=== PATIENT | male | born 2000 | race Caucasian/White ===

== ENCOUNTER 2018-05-13 06:11 | Day surgery (SDC) | payer BC ==
[2018-05-07 15:19] VITALS: BMI 19.0
[~2018-05-13 06:11] MED LIST: DEXAMETHASONE SOD PHOSPHATE 10 MG/ML 1 ML VIAL IV ONE; HEPARIN SODIUM,PORCINE 5,000 UNIT/ML 1 ML VIAL SQ ONE; HYDROmorphone 0.5 MG/0.5 ML SYRINGE IVP PRN; LACTATED RINGERS 1,000 ML IV SCH; ONDANSETRON 4 MG/2 ML VIAL IVP ONE; SCOPOLAMINE 1.5MG/72HR PATCH TRANSDERM ONE; fentaNYL (PF) 50 MCG/ML 2 ML AMP IV PRN
[2018-05-13] MEDS ORDERED: LIDOCAINE 1% 20 ML VIAL (10MG/ML) FOR IV START INTRADERMA ONE (07:12)
--- NOTE | 2018-05-13 07:42 | P.GSHP ---
History of Present Illness H&P Date: 05/13/18 Chief Complaint: Pilonidal cyst Patient is a 17-year-old male who has had complaints of pain in the region of the pilonidal region over the last several months. Denies fevers. States it is actually gotten somewhat smaller since his last evaluation. Patient has a sinus opening measuring about 3-4 mm with no erythema. No prior surgical intervention or drainage. 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 PILONIDAL CYST History of Any Multi-Drug Resistant Organisms: None Reported Past Surgical History: No Surgical Hx Reported Past Anesthesia/Blood Transfusion Reactions: No Reported Reaction Additional Past Anesthesia/Blood Transfusion Reaction / Comment(s): NO PRIOR SX HX Smoking Status: Never smoker - Past Family History Mother Family Medical History: No Reported History Medications and Allergies Home Medications Medication Instructions Recorded Confirmed Type No Known Home Medications 05/07/18 05/13/18 History Allergies Allergy/AdvReac Type Severity Reaction Status Date / Time No Known Allergies Allergy Verified 05/13/18 06:52 Surgical - Exam Vital Signs Temp Pulse Resp BP Pulse Ox 97.6 F 79 16 117/75 97 05/13/18 06:51 05/13/18 06:51 05/13/18 06:51 05/13/18 06:51 05/13/18 06:51 Physical exam: General: Well-developed, well-nourished HEENT: Normocephalic, sclerae nonicteric Abdomen: Nontender, nondistended Extremities: No edema, pilonidal region with 3-4 mm sinus Neuro: Alert and oriented Assessment and Plan (1) Pilonidal cyst Narrative/Plan: Will proceed with pilonidal cystectomy at this time. Risks were previously discussed with the patient. Current Visit: Yes Status: Acute Code(s): L05.91 - PILONIDAL CYST WITHOUT ABSCESS SNOMED Code(s): 74712833
[2018-05-13] MEDS ORDERED: PROPOFOL 10 MG/ML 20 ML VIAL IV ONE (07:56)
[2018-05-13] MEDS ORDERED: LIDOCAINE 1% INJ 10MG/ML (20 ML MDV) ONE (07:56)
[2018-05-13] MEDS ORDERED: fentaNYL (PF) 50 MCG/ML 2 ML AMP ONE (07:56)
[2018-05-13] MEDS ORDERED: SUCCINYLCHOLINE CHLORIDE 100 MG/5 ML SYR IV ONE (07:56)
[2018-05-13] MEDS ORDERED: MIDAZOLAM 2 MG/2 ML VIAL ONE (07:56)
[2018-05-13] MEDS: ceFAZolin IN SWFI 2 GM/20 ML SYRINGE IVP ONE ×2 (08:01→08:02)
[2018-05-13] MEDS: metroNIDAZOLE-NS PMX 500 MG in SALINE 1 100ML.BAG IVPB ONE ×2 (08:02→08:20)
[2018-05-13] MEDS ORDERED: BUPIVACAIN-EPI 0.5%-1:200,000 30 ML VIAL SQ ONE ×2 (08:26)
[2018-05-13] MEDS ORDERED: LACTATED RINGERS 1,000 ML IV ONE ×2 (08:41)
[2018-05-13] MEDS ORDERED: HYDROcodone/APAP 5-325MG 1 EACH TAB PO PRN (09:03)
[2018-05-13] MEDS ORDERED: NALOXONE 0.4 MG/ML 1 ML VIAL IV PRN (09:03)
--- NOTE | 2018-05-13 09:10 | P.OP ---
Date of Procedure: 05/13/18 Procedure(s) Performed: PREOPERATIVE DIAGNOSIS: Pilonidal cyst POSTOPERATIVE DIAGNOSIS: Same PROCEDURE: Pilonidal cystectomy SURGEON: Marquita ROGERL: Minimal ANESTHESIA: General COMPLICATIONS: None OPERATIVE PROCEDURE: Patient was placed prone on the operating table. The gluteal crease was prepped and draped in usual sterile fashion after the patient was placed in the prone jackknife position. The pilonidal cyst opening was instilled with methylene blue solution. An elliptical incision was made around the pilonidal cyst opening. Dissection took place down through the subcutaneous tissues using electrocautery. Care was taken to be sure that the entire cyst cavity was removed. Specimen was sent to pathology. The operative site was irrigated with saline. It was then infiltrated with local anesthesia. The subcutaneous tissues were then reapproximated using interrupted 3-0 Vicryl sutures. The skin was closed using a running 4-0 nylon sutures. Sterile dressings then applied. DISPOSITION: Stable to recovery room
[2018-05-13 09:19] VITALS: TEMP 97.3
[2018-05-13 09:29] VITALS: RESP 16
[2018-05-13] MEDS: HYDROmorphone 0.5 MG/0.5 ML SYRINGE IVP PRN ×2 (09:33→09:40)
[2018-05-13] MEDS ORDERED: HYDROcodone/APAP 5-325MG 1 EACH TAB PO ONE (10:11)
[2018-05-13 10:57] VITALS: BP 113/74; PULSE 71
== END 2018-05-13 11:27 | disposition home or self-care (01) ==
LOC: OR 06:11 → EDBD 07:30 → OR 11:27
PROVIDERS: ATTEND Surgery
DX: L05.91 Pilonidal cyst without abscess (principal); Q24.8 Other specified congenital malformations of heart
CPT/HCPCS: 11770; J2250; J1644; J1100; J2405; J2001; J3010; J0330; J2704; J1170; J0690; 88304

== ENCOUNTER 2018-07-31 13:26 | Observation (INO) | payer BC ==
[2018-07-31] MEDS ORDERED: PANTOPRAZOLE 40 MG/10 ML VIAL IVP STA (14:28)
[2018-07-31] MEDS ORDERED: ONDANSETRON 4 MG/2 ML VIAL IVP STA (14:28)
[2018-07-31] MEDS ORDERED: KETOROLAC 30 MG/ML 1 ML VIAL IVP STA (14:28)
[2018-07-31] MEDS ORDERED: SODIUM CHLORIDE 0.9% 1,000 ML IV STA ×2 (14:28)
--- NOTE | 2018-07-31 14:48 | ED ---
Abdominal Pain HPI - General Chief Complaint: Abdominal Pain Stated Complaint: abd pain Time Seen by Provider: 07/31/18 14:17 Source: patient, family, RN notes reviewed, old records reviewed Mode of arrival: wheelchair Limitations: no limitations - History of Present Illness Initial Comments: This patient's a 18-year-old male presents emergency department today with chief complaint of nausea, and lower abdominal pain. He reports it started this morning at 9 AM. He believes it was related to eating a pizza from a gas station. Patient states that he feels generally very ill and weak. Patient's had multiple episodes of near syncope due to weakness. Patient states that he has had no chest pain or shortness of breath. He reports he has chills. He denies any urinary symptoms he has had no diarrhea. Patient's past medical history includes pilonidal cyst surgery. No other previous abdominal surgeries or medical history - Related Data Home Medications Medication Instructions Recorded Confirmed Acetaminophen Tab [Tylenol Tab] 1,000 mg PO Q6H PRN 07/31/18 07/31/18 Allergies Allergy/AdvReac Type Severity Reaction Status Date / Time No Known Allergies Allergy Verified 07/31/18 14:27 Review of Systems ROS Statement: Those systems with pertinent positive or pertinent negative responses have been documented in the HPI. ROS Other: All systems not noted in ROS Statement are negative. 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 History of Any Multi-Drug Resistant Organisms: None Reported Past Surgical History: No Surgical Hx Reported Additional Past Surgical History / Comment(s): pilinodal cyst removed Past Anesthesia/Blood Transfusion Reactions: No Reported Reaction Additional Past Anesthesia/Blood Transfusion Reaction / Comment(s): NO PRIOR SX HX Past Psychological History: No Psychological Hx Reported Smoking Status: Never smoker Past Alcohol Use History: None Reported Past Drug Use History: None Reported - Past Family History Mother Family Medical History: No Reported History General Exam - General Exam Comments Initial Comments: This patient's a 18-year-old male. Patient appears weak and ill. Limitations: no limitations General appearance: alert Head exam: Present: atraumatic, normocephalic, normal inspection Eye exam: Present: normal appearance, PERRL, EOMI. Absent: scleral icterus, conjunctival injection, periorbital swelling ENT exam: Present: normal exam, mucous membranes moist Neck exam: Present: normal inspection. Absent: tenderness, meningismus, lymphadenopathy Respiratory exam: Present: normal lung sounds bilaterally. Absent: respiratory distress, wheezes, rales, rhonchi, stridor Cardiovascular Exam: Present: regular rate, normal rhythm, normal heart sounds. Absent: systolic murmur, diastolic murmur, rubs, gallop, clicks GI/Abdominal exam: Present: soft, tenderness (Lower abdominal tenderness noted, RLQ tenderness), normal bowel sounds. Absent: distended, guarding, rebound, rigid Extremities exam: Present: normal inspection, full ROM, normal capillary refill. Absent: tenderness, pedal edema, joint swelling, calf tenderness Back exam: Present: normal inspection Neurological exam: Present: alert, oriented X3, CN II-XII intact Course Vital Signs 07/31/18 07/31/18 07/31/18 13:31 14:37 16:07 Temperature 97.8 F 99 F Pulse Rate 77 82 Respiratory 16 18 Rate Blood Pressure 92/54 104/68 124/73 O2 Sat by Pulse 98 98 Oximetry Medical Decision Making - Medical Decision Making Patient is a 18-year-old male presents for his murmurs any tingling of lower abdominal pain and nausea. Examiner episode of vomiting and emergency department. Patient appeared very ill and weak. Evidence of Tamara's. Patient had significant tenderness over the lower abdomen and right lower quadrant. Concern for appendicitis. Patient was started on IV fluids labwork obtained. Blood culture was obtained. Patient has elevated white blood cell count of 18.6 with left shift of 16,000. Lactic acid was noted to be elevated at 2.8. Patient was started on IV Zosyn and given a liter boluses. Computed tomography scan was suboptimal study due to lack of intra-abdominal fat. Patient also seemed to have a reaction due to the contrast and after receiving the contrast he had a coughing and sneezing episode. Patient was given IV Benadryl and Solu-Medrol. No evidence of significant appendicitis at this time. Appendix was slightly enlarged at 8 mm. Patient will be admitted at this time to Dr. Chapman. Continue Zosyn. - Lab Data Result diagrams: 07/31/18 14:55 07/31/18 14:55 Lab Results 07/31/18 07/31/18 07/31/18 Range/Units 14:55 14:55 14:55 WBC 18.9 H (4.0-11.0) k/uL RBC 5.01 (4.30-5.90) m/uL Hgb 16.1 (13.0-17.5) gm/dL Hct 45.5 (39.0-53.0) % MCV 90.9 (80.0-100.0) fL MCH 32.2 (25.0-35.0) pg MCHC 35.5 (31.0-37.0) g/dL RDW 12.4 (11.5-15.5) % Plt Count 243 (150-450) k/uL Neutrophils % 89 % Lymphocytes % 7 % Monocytes % 3 % Eosinophils % 0 % Basophils % 0 % Neutrophils # 16.8 H (1.3-7.7) k/uL Lymphocytes # 1.4 (1.0-4.8) k/uL Monocytes # 0.6 (0-1.0) k/uL Eosinophils # 0.1 (0-0.7) k/uL Basophils # 0.0 (0-0.2) k/uL PT (9.0-12.0) sec INR (<1.2) APTT (22.0-30.0) sec Sodium 142 (137-145) mmol/L Potassium 3.3 L (3.5-5.1) mmol/L Chloride 103 (98-107) mmol/L Carbon Dioxide 26 (22-30) mmol/L Anion Gap 13 mmol/L BUN 13 (9-20) mg/dL Creatinine 0.77 (0.66-1.25) mg/dL Est GFR (CKD-EPI)AfAm >90 (>60 ml/min/1.73 sqM) Est GFR (CKD-EPI)NonAf >90 (>60 ml/min/1.73 sqM) Glucose 133 H (74-99) mg/dL Plasma Lactic Acid Clif 2.8 H* (0.7-2.0) mmol/L Calcium 9.9 (8.4-10.2) mg/dL Total Bilirubin 0.7 (0.2-1.3) mg/dL AST 24 (17-59) U/L ALT 33 (21-72) U/L Alkaline Phosphatase 66 (38-126) U/L Total Protein 8.2 (6.3-8.2) g/dL Albumin 4.8 (3.5-5.0) g/dL Amylase 61 (30-110) U/L Lipase 59 (23-300) U/L Urine Color Urine Appearance (Clear) Urine pH (5.0-8.0) Ur Specific [place] (1.001-1.035) Urine Protein (Negative) Urine Glucose (UA) (Negative) Urine Ketones (Negative) Urine Blood (Negative) Urine Nitrite (Negative) Urine Bilirubin (Negative) Urine Urobilinogen (<2.0) mg/dL Ur Leukocyte Esterase (Negative) Urine Opiates Screen (NotDetected) Ur Oxycodone Screen (NotDetected) Urine Methadone Screen (NotDetected) Ur Propoxyphene Screen (NotDetected) Ur Barbiturates Screen (NotDetected) U Tricyclic Antidepress (NotDetected) Ur Phencyclidine Scrn (NotDetected) Ur Amphetamines Screen (NotDetected) U Methamphetamines Scrn (NotDetected) U Benzodiazepines Scrn (NotDetected) Urine Cocaine Screen (NotDetected) U Marijuana (THC) Screen (NotDetected) 07/31/18 07/31/18 Range/Units 14:55 14:55 WBC (4.0-11.0) k/uL RBC (4.30-5.90) m/uL Hgb (13.0-17.5) gm/dL Hct (39.0-53.0) % MCV (80.0-100.0) fL MCH (25.0-35.0) pg MCHC (31.0-37.0) g/dL RDW (11.5-15.5) % Plt Count (150-450) k/uL Neutrophils % % Lymphocytes % % Monocytes % % Eosinophils % % Basophils % % Neutrophils # (1.3-7.7) k/uL Lymphocytes # (1.0-4.8) k/uL Monocytes # (0-1.0) k/uL Eosinophils # (0-0.7) k/uL Basophils # (0-0.2) k/uL PT 11.5 (9.0-12.0) sec INR 1.2 H (<1.2) APTT 22.2 (22.0-30.0) sec Sodium (137-145) mmol/L Potassium (3.5-5.1) mmol/L Chloride (98-107) mmol/L Carbon Dioxide (22-30) mmol/L Anion Gap mmol/L BUN (9-20) mg/dL Creatinine (0.66-1.25) mg/dL Est GFR (CKD-EPI)AfAm (>60 ml/min/1.73 sqM) Est GFR (CKD-EPI)NonAf (>60 ml/min/1.73 sqM) Glucose (74-99) mg/dL Plasma Lactic Acid Clif (0.7-2.0) mmol/L Calcium (8.4-10.2) mg/dL Total Bilirubin (0.2-1.3) mg/dL AST (17-59) U/L ALT (21-72) U/L Alkaline Phosphatase (38-126) U/L Total Protein (6.3-8.2) g/dL Albumin (3.5-5.0) g/dL Amylase (30-110) U/L Lipase (23-300) U/L Urine Color Yellow Urine Appearance Clear (Clear) Urine pH 6.0 (5.0-8.0) Ur Specific [place] 1.018 (1.001-1.035) Urine Protein Negative (Negative) Urine Glucose (UA) Negative (Negative) Urine Ketones Negative (Negative) Urine Blood Negative (Negative) Urine Nitrite Negative (Negative) Urine Bilirubin Negative (Negative) Urine Urobilinogen <2.0 (<2.0) mg/dL Ur Leukocyte Esterase Negative (Negative) Urine Opiates Screen Not Detected (NotDetected) Ur Oxycodone Screen Not Detected (NotDetected) Urine Methadone Screen Not Detected (NotDetected) Ur Propoxyphene Screen Not Detected (NotDetected) Ur Barbiturates Screen Not Detected (NotDetected) U Tricyclic Antidepress Not Detected (NotDetected) Ur Phencyclidine Scrn Not Detected (NotDetected) Ur Amphetamines Screen Not Detected (NotDetected) U Methamphetamines Scrn Not Detected (NotDetected) U Benzodiazepines Scrn Not Detected (NotDetected) Urine Cocaine Screen Not Detected (NotDetected) U Marijuana (THC) Screen Not Detected (NotDetected) - Radiology Data Radiology results: report reviewed Disposition Clinical Impression: Abdominal pain, Leukocytosis, Lactic acidosis Disposition: ADMITTED IP TO THIS [facility] Condition: Stable Is patient prescribed a controlled substance at d/c from ED?: No Referrals: None,Stated [Primary Care Provider] - 1-2 days Time of Disposition: 16:31
[2018-07-31 15:10] LABS: Basophils % (A) 0 %; Eosinophils # (A) 0.1 k/uL (0-0.7); Eosinophils % (A) 0 %; HCT 45.5 % (39.0-53.0); HGB 16.1 gm/dL (13.0-17.5); Lymphocytes # (A) 1.4 k/uL (1.0-4.8); Lymphocytes % (A) 7 %; MCH 32.2 pg (25.0-35.0); MCHC 35.5 g/dL (31.0-37.0); MCV 90.9 fL (80.0-100.0); Mean Platelet Volume 7.4; Monocytes # (A) 0.6 k/uL (0-1.0); Monocytes % (A) 3 %; Neutrophils # (A) 16.8 k/uL (1.3-7.7); Neutrophils % (A) 89 %; Platelet Count 243 k/uL (150-450); RBC 5.01 m/uL (4.30-5.90); RDW 12.4 % (11.5-15.5); WBC 18.9 k/uL (4.0-11.0)
[2018-07-31 15:11] LABS: Appearance,Urine Clear (Clear); Bilirubin,Urine Negative (Negative); Blood,Urine Negative (Negative); Color,Urine Yellow; Glucose,Urine (UA) Negative (Negative); Ketones,Urine Negative (Negative); Leukocyte Esterase,Urine Negative (Negative); Nitrite,Urine Negative (Negative); Protein,Urine Negative (Negative); Specific Gravity,Urine 1.018 (1.001-1.035); Urobilinogen,Urine <2.0 mg/dL (<2.0)
[2018-07-31 15:20] LABS: ALT 33 U/L (21-72); AST 24 U/L (17-59); Albumin 4.8 g/dL (3.5-5.0); Alkaline Phosphatase 66 U/L (38-126); Amylase 61 U/L (30-110); Anion Gap 13 mmol/L; Blood Urea Nitrogen 13 mg/dL (9-20); Calcium 9.9 mg/dL (8.4-10.2); Carbon Dioxide 26 mmol/L (22-30); Chloride 103 mmol/L (98-107); Glucose 133 mg/dL (74-99); Lipase 59 U/L (23-300); Potassium 3.3 mmol/L (3.5-5.1); Sodium 142 mmol/L (137-145); Total Bilirubin 0.7 mg/dL (0.2-1.3); Total Protein 8.2 g/dL (6.3-8.2)
[2018-07-31 15:21] LABS: Amphetamine Screen,Urine Not Detected (NotDetected); Barbiturate Screen,Urine Not Detected (NotDetected); Benzodiazepines Screen,Urine Not Detected (NotDetected); Cocaine Screen,Urine Not Detected (NotDetected); INR 1.2 (<1.2); Methadone Screen, Urine Not Detected (NotDetected); Opiate Screen,Urine Not Detected (NotDetected); Oxycodone Screen, Urine Not Detected (NotDetected); Partial Thromboplastin Time 22.2 sec (22.0-30.0); Phencyclidine Screen,Urine Not Detected (NotDetected); Prothrombin Time 11.5 sec (9.0-12.0); Tricyclic Antidepressant,Urine Not Detected (NotDetected); Urn Cannabinoid Scrn Not Detected (NotDetected)
[2018-07-31] MEDS ORDERED: methylPREDNISolone SOD SUCCI 125 MG/2 ML VIAL IV STA (15:26)
[2018-07-31] MEDS ORDERED: diphenhydrAMINE 50 MG/ML 1 ML VIAL IVP STA (15:26)
[2018-07-31] MEDS ORDERED: PIPERACILLIN-TAZOBACTAM 3.375 GM in DEXTROSE/WATER 1 50ML.BAG IVPB STA (15:30)
--- NOTE | 2018-07-31 15:39 | CT ---
EXAMINATION TYPE: CT abdomen pelvis w con DATE OF EXAM: 07/31/2018 COMPARISON: None HISTORY: Right lower quadrant abdominal pain, nausea and vomiting after eating. CT DLP: 241.7 mGycm, Automated Exposure Control for Dose Reduction was Utilized. CONTRAST: CT scan of the abdomen and pelvis is performed without oral but with IV Contrast, patient injected wi th 100ml mL of Isovue M300. FINDINGS: LUNG BASES: No significant abnormality is appreciated. LIVER/GB: No significant abnormality is appreciated. PANCREAS: No significant abnormality is seen. SPLEEN: No significant abnormality is seen. ADRENALS: No significant abnormality is seen. KIDNEYS: No significant abnormality is seen. BOWEL: Evaluation bowel is suboptimal secondary to lack of enteric contrast and patient having very l ittle intra-abdominal fat. There is no suspicious small or large bowel dilatation identified. Appendi x difficult to visualize with certainty. No significant inflammatory change at base of cecum is prese nt. There is tube shaped structure right lower quadrant posterior to the cecum axial image 52 could r eflect mildly dilated appendix versus fluid-filled nondilated small bowel. No surrounding inflammator y changes present. It measures roughly up to 8 mm in size coronal image 31. PROSTATE/SEMINAL VESICLES: Single left-sided pelvic phlebolith is present. LYMPH NODES: No greater than 1cm abdominal or pelvic lymph nodes are appreciated. OSSEOUS STRUCTURES: Bilateral pars defects L5 level. Slight or minimal grade 1 anterolisthesis L5 on S1. OTHER: No significant additional abnormality is seen. IMPRESSION: No significant acute finding is clearly seen to account for patient's clinical symptoms. Suboptimal study to evaluate for acute appendicitis noted. I cannot be entirely excluded on this leonora dy. No bowel obstruction is present.
[2018-07-31] MEDS ORDERED: ONDANSETRON 4 MG/2 ML VIAL IVP PRN (16:32)
[2018-07-31] MEDS ORDERED: NALOXONE 0.4 MG/ML 1 ML VIAL IV PRN (16:32)
[2018-07-31] MEDS: SODIUM CHLORIDE 0.9% 1,000 ML IV SCH (17:40)
[2018-07-31] MEDS: MORPHINE SULFATE 4 MG/ML SYRINGE IV PRN (18:25)
--- NOTE | 2018-07-31 19:28 | P.GSHP ---
History of Present Illness H&P Date: 07/31/18 Chief Complaint: Abdominal pain The patient's a 18-year-old young man that presented to the emergency department with abdominal pain. Healing normally yesterday. [place] 9 this morning he noticed some discomfort in the abdomen. It got progressively worse. Severe cramping and pain. He had some chills. Developed nausea and vomiting so he came into the emergency department. He has not been ill in the weeks proceeding this. He did have a similar admission about 2 years ago when he was admitted to rule out appendicitis. That resolved without any surgical treatment. Denies fevers today. He had some constipation today. He has had episodes of diarrhea recently. On a bad day he is on 3-5 times. There is been no blood in the stool or dark tarry stool. No weight loss. No family history of GI malignancy or inflammatory bowel disease. 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 hx of pilonidal cyst History of Any Multi-Drug Resistant Organisms: None Reported Past Surgical History: No Surgical Hx Reported Additional Past Surgical History / Comment(s): pilinodal cyst removed Past Anesthesia/Blood Transfusion Reactions: No Reported Reaction Additional Past Anesthesia/Blood Transfusion Reaction / Comment(s): NO PRIOR SX HX Smoking Status: Never smoker - Past Family History Mother Family Medical History: No Reported History Father Additional Family Medical History / Comment(s): hernia Medications and Allergies Home Medications Medication Instructions Recorded Confirmed Type Acetaminophen Tab [Tylenol Tab] 1,000 mg PO Q6H PRN 07/31/18 07/31/18 History Allergies Allergy/AdvReac Type Severity Reaction Status Date / Time No Known Allergies Allergy Verified 07/31/18 14:27 Surgical - Exam Osteopathic Statement: *. No significant issues noted on an osteopathic structural exam other than those noted in the History and Physical/Consult. Vital Signs Temp Pulse Resp BP Pulse Ox 97.8 F 77 16 92/54 98 07/31/18 13:31 07/31/18 13:31 07/31/18 13:31 07/31/18 13:31 07/31/18 13:31 - General well developed, well nourished, no distress - Eyes normal ocular movement - ENT normal mucosa, no congestion - Neck no no masses, trachea midline, no lymphadectomy (Several subcentimeter lymph nodes are noted in the neck. A subcentimeter cyst is noted in the left posterior neck.) - Respiratory normal expansion, normal respiratory effort, clear to auscultation absent: wheezing - Cardiovascular Rhythm: regular - Abdomen No significant tenderness to deep palpation in the right lower quadrant. He states it feels better than when he presented to the emergency department Abdomen: soft, tender (Mild epigastric tenderness. ), bowel sounds, no guarding , no rigid, no rebound - Integumentary no rash - Neurologic no disoriented, no combative - Psychiatric oriented to time, oriented to person, oriented to place, speech is normal, memory intact Results - Labs 07/31/18 14:55 07/31/18 14:55 Abnormal Lab Results - Last 24 Hours (Table) 07/31/18 07/31/18 07/31/18 Range/Units 14:55 14:55 14:55 WBC 18.9 H (4.0-11.0) k/uL Neutrophils # 16.8 H (1.3-7.7) k/uL INR (<1.2) Potassium 3.3 L (3.5-5.1) mmol/L Glucose 133 H (74-99) mg/dL Plasma Lactic Acid Clif 2.8 H* (0.7-2.0) mmol/L 07/31/18 Range/Units 14:55 WBC (4.0-11.0) k/uL Neutrophils # (1.3-7.7) k/uL INR 1.2 H (<1.2) Potassium (3.5-5.1) mmol/L Glucose (74-99) mg/dL Plasma Lactic Acid Clif (0.7-2.0) mmol/L Diabetes panel 07/31/18 Range/Units 14:55 Sodium 142 (137-145) mmol/L Potassium 3.3 L (3.5-5.1) mmol/L Chloride 103 (98-107) mmol/L Carbon Dioxide 26 (22-30) mmol/L BUN 13 (9-20) mg/dL Creatinine 0.77 (0.66-1.25) mg/dL Glucose 133 H (74-99) mg/dL Calcium 9.9 (8.4-10.2) mg/dL AST 24 (17-59) U/L ALT 33 (21-72) U/L Alkaline Phosphatase 66 (38-126) U/L Total Protein 8.2 (6.3-8.2) g/dL Albumin 4.8 (3.5-5.0) g/dL Calcium panel 07/31/18 Range/Units 14:55 Calcium 9.9 (8.4-10.2) mg/dL Albumin 4.8 (3.5-5.0) g/dL Pituitary panel 07/31/18 Range/Units 14:55 Sodium 142 (137-145) mmol/L Potassium 3.3 L (3.5-5.1) mmol/L Chloride 103 (98-107) mmol/L Carbon Dioxide 26 (22-30) mmol/L BUN 13 (9-20) mg/dL Creatinine 0.77 (0.66-1.25) mg/dL Glucose 133 H (74-99) mg/dL Calcium 9.9 (8.4-10.2) mg/dL Adrenal panel 07/31/18 Range/Units 14:55 Sodium 142 (137-145) mmol/L Potassium 3.3 L (3.5-5.1) mmol/L Chloride 103 (98-107) mmol/L Carbon Dioxide 26 (22-30) mmol/L BUN 13 (9-20) mg/dL Creatinine 0.77 (0.66-1.25) mg/dL Glucose 133 H (74-99) mg/dL Calcium 9.9 (8.4-10.2) mg/dL Total Bilirubin 0.7 (0.2-1.3) mg/dL AST 24 (17-59) U/L ALT 33 (21-72) U/L Alkaline Phosphatase 66 (38-126) U/L Total Protein 8.2 (6.3-8.2) g/dL Albumin 4.8 (3.5-5.0) g/dL - Imaging CT scan - abdomen: report reviewed, image reviewed Assessment and Plan (1) Abdominal pain Current Visit: Yes Status: Acute Code(s): R10.9 - UNSPECIFIED ABDOMINAL PAIN SNOMED Code(s): 29000804 (2) Lactic acidosis Current Visit: Yes Status: Acute Code(s): E87.2 - ACIDOSIS SNOMED Code(s) : 63129467 (3) Leukocytosis Current Visit: Yes Status: Acute Code(s): D72.829 - ELEVATED WHITE BLOOD CELL COUNT, UNSPECIFIED SNOMED Code(s): 711905496 Plan: The patient is currently feeling better with hydration and some pain medication. He'll be watched overnight hydrated. Serial exams. If he continues to have right lower quadrant pain in the leukocytosis doesn't resolve then keep a candidate for laparoscopic appendectomy. Especially since he's had a previous episode of this. Further recommendations to follow. May possibly need outpatient workup for the diarrhea.
[2018-07-31] MEDS: KETOROLAC 30 MG/ML 1 ML VIAL IVP PRN (22:39)
[2018-07-31 22:50] VITALS: RESP 16
[2018-08-01] MEDS: PIPERACILLIN-TAZOBACTAM 3.375 GM in DEXTROSE/WATER 1 50ML.BAG IVPB SCH ×2 (00:11→08:13)
[2018-08-01] MEDS: MORPHINE SULFATE 4 MG/ML SYRINGE IV PRN (00:17)
[2018-08-01] MEDS: SODIUM CHLORIDE 0.9% 1,000 ML IV SCH ×2 (05:03→14:00)
[2018-08-01 07:34] VITALS: BP 90/57; PULSE 81; TEMP 98.1
[2018-08-01 08:26] LABS: HCT 41.1 % (39.0-53.0); MCHC 34.1 g/dL (31.0-37.0); MCV 90.8 fL (80.0-100.0); Mean Platelet Volume 7.7; Platelet Count 211 k/uL (150-450); RBC 4.52 m/uL (4.30-5.90); RDW 12.4 % (11.5-15.5); WBC 12.8 k/uL (4.0-11.0)
[2018-08-01 08:49] LABS: Anion Gap 7 mmol/L; Blood Urea Nitrogen 12 mg/dL (9-20); Calcium 8.9 mg/dL (8.4-10.2); Carbon Dioxide 24 mmol/L (22-30); Chloride 109 mmol/L (98-107); Glucose 95 mg/dL (74-99); Sodium 140 mmol/L (137-145)
[2018-08-01] MEDS ORDERED: PANTOPRAZOLE 40 MG/10 ML VIAL IV SCH (09:00)
--- NOTE | 2018-08-01 09:55 | P.PN ---
Subjective Progress Note Date: 08/01/18 Principal diagnosis: Abdominal pain, nausea, vomiting The patient was admitted through ER yesterday with abdominal pain, nausea and vomiting. He had a 18,900 white count. He was hydrated, bowel rest and given pain control. He's feeling better today. No nausea. He is hungry. He has some mild tenderness in his abdomen. Objective - Vital Signs Vital signs: Vital Signs Temp 98.1 F 08/01/18 07:13 Pulse 81 08/01/18 07:13 Resp 16 08/01/18 08:00 BP 90/57 08/01/18 07:13 Pulse Ox 99 08/01/18 07:13 Intake & Output 07/31/18 08/01/18 08/01/18 18:59 06:59 18:59 Weight 56.699 kg Other: # Voids 2 - Constitutional General appearance: Present: cooperative, no acute distress - Respiratory Respiratory: bilateral: CTA - Cardiovascular Rhythm: regular - Gastrointestinal General gastrointestinal: Present: normal bowel sounds, soft, tenderness (There is some very mild tenderness to deep palpation in the right lower quadrant without guarding or rebound) - Labs CBC & Chem 7: 08/01/18 08:06 08/01/18 08:06 Labs: Abnormal Lab Results - Last 24 Hours (Table) 07/31/18 07/31/18 07/31/18 Range/Units 14:55 14:55 14:55 WBC 18.9 H (4.0-11.0) k/uL Neutrophils # 16.8 H (1.3-7.7) k/uL INR (<1.2) Potassium 3.3 L (3.5-5.1) mmol/L Chloride (98-107) mmol/L Glucose 133 H (74-99) mg/dL Plasma Lactic Acid Clif 2.8 H* (0.7-2.0) mmol/L 07/31/18 08/01/18 08/01/18 Range/Units 14:55 08:06 08:06 WBC 12.8 H (4.0-11.0) k/uL Neutrophils # (1.3-7.7) k/uL INR 1.2 H (<1.2) Potassium (3.5-5.1) mmol/L Chloride 109 H (98-107) mmol/L Glucose (74-99) mg/dL Plasma Lactic Acid Clif (0.7-2.0) mmol/L Assessment and Plan (1) Abdominal pain Current Visit: Yes Status: Acute Code(s): R10.9 - UNSPECIFIED ABDOMINAL PAIN SNOMED Code(s): 98567926 (2) Lactic acidosis Current Visit: Yes Status: Acute Code(s): E87.2 - ACIDOSIS SNOMED Code(s) : 42294410 (3) Leukocytosis Current Visit: Yes Status: Acute Code(s): D72.829 - ELEVATED WHITE BLOOD CELL COUNT, UNSPECIFIED SNOMED Code(s): 509679290 Plan: Patient's clinically improved. This is likely a viral syndrome. We'll start him on a diet. If he is able to tolerate food without increasing pain, nausea, vomiting, then we'll discharge him later today. If he develops recurrence of symptoms and I would recommend a laparoscopy with appendectomy.
[2018-08-01 11:32] VITALS: BMI 19.0
[2018-08-01] MEDS: KETOROLAC 30 MG/ML 1 ML VIAL IVP PRN (13:52)
== END 2018-08-01 14:07 | disposition home or self-care (01) ==
LOC: EC 13:26 → 4MS4W 16:20
PROVIDERS: ADMIT Surgery; ATTEND Surgery
DX: E87.2 Acidosis (principal); D72.829 Elevated white blood cell count, unspecified; R10.31 Right lower quadrant pain; R68.83 Chills (without fever); R05 Cough; R06.7 Sneezing; K59.00 Constipation, unspecified; R19.7 Diarrhea, unspecified
CPT/HCPCS: 99285 ×2; 96365 ×2; 96361 ×4; 96375 ×3; 96376 ×2; 36415; 80053; 80048; 82150; 83605; 83690; 85025; 85027; 85610; 85730; 81003; 87040; 80306; 74177; G0378 ×2; J2270 ×2; J1200; J2930; J2405; J1885 ×2; J2543 ×2; C9113 ×2; Q9967

== ENCOUNTER 2018-08-03 12:38 | Observation (INO) | payer BC ==
[2018-08-03] MEDS ORDERED: SODIUM CHLORIDE 0.9% 1,000 ML IV STA (13:15)
[2018-08-03] MEDS ORDERED: methylPREDNISolone SOD SUCCI 125 MG/2 ML VIAL IV STA (13:16)
[2018-08-03] MEDS ORDERED: diphenhydrAMINE 50 MG/ML 1 ML VIAL IVP STA (13:16)
[2018-08-03] MEDS ORDERED: FAMOTIDINE 20 MG/2 ML VIAL IV STA (13:16)
--- NOTE | 2018-08-03 13:50 | ED ---
General Adult HPI - General Chief complaint: Abdominal Pain Stated complaint: Abd Pain Time Seen by Provider: 08/03/18 13:08 Source: patient, RN notes reviewed, old records reviewed Mode of arrival: ambulatory Limitations: no limitations - History of Present Illness Initial comments: Patient's a 18-year-old male presented to the emergency room today with a chief complaint of right lower quadrant pain. Patient does admit that he was seen here recently for possible appendicitis. He states that he was discharged home stools been experiencing pain to the right lower quadrant. Patient does admit that he did talk to Dr. Juárez's office today was advised coming here to the emergency room for repeat CAT scan. Patient mitts to pain to the right lower quadrant. Denies any other complaints currently. Patient denies any recent fever, chills, shortness of breath, chest pain, numbness or tingling, headaches or visual changes, or any other complaints. - Related Data Home Medications Medication Instructions Recorded Confirmed No Known Home Medications 08/03/18 08/03/18 Allergies Allergy/AdvReac Type Severity Reaction Status Date / Time Iodinated Contrast- Oral and AdvReac Cough/sneez Verified 08/03/18 14:22 IV Dye e Review of Systems ROS Statement: Those systems with pertinent positive or pertinent negative responses have been documented in the HPI. ROS Other: All systems not noted in ROS Statement are negative. 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 hx of pilonidal cyst History of Any Multi-Drug Resistant Organisms: None Reported Past Surgical History: No Surgical Hx Reported Additional Past Surgical History / Comment(s): pilinodal cyst removed Past Anesthesia/Blood Transfusion Reactions: No Reported Reaction Additional Past Anesthesia/Blood Transfusion Reaction / Comment(s): NO PRIOR SX HX Past Psychological History: No Psychological Hx Reported Smoking Status: Never smoker Past Alcohol Use History: None Reported Past Drug Use History: None Reported - Past Family History Mother Family Medical History: No Reported History Father Additional Family Medical History / Comment(s): hernia General Exam - General Exam Comments Initial Comments: General: The patient is awake and alert, in no distress, and does not appear acutely ill. Eye: Pupils are equal, round and reactive to light. Extra-ocular movements are intact. No nystagmus. There is normal conjunctiva bilaterally. No signs of icterus. Ears, nose, mouth and throat: There are moist mucous membranes and no oral lesions. Neck: The neck is supple, there is no tenderness or JVD. Cardiovascular: There is a regular rate and rhythm. No murmur, rub or gallop is appreciated. Respiratory: Lungs are clear to auscultation, respirations are non-labored, breath sounds are equal. No wheezes, stridor, rales, or rhonchi. Gastrointestinal: Soft on palpation. Patient does have tenderness over the arch. No rebound, guarding or CVA tenderness. Musculoskeletal: Normal ROM, no tenderness. Sensation intact. Strength 5/5. Pulses equal bilaterally 2+. Neurological: A&O x 3. CN II-XII intact, There are no obvious motor or sensory deficits. Coordination appears grossly intact. Speech is normal. Skin: Skin is warm and dry and no rashes or lesions are noted. Psychiatric: Cooperative, appropriate mood & affect, normal judgment. Limitations: no limitations Course Vital Signs 08/03/18 12:53 Temperature 98.3 F Pulse Rate 74 Respiratory 20 Rate Blood Pressure 109/78 O2 Sat by Pulse 99 Oximetry Medical Decision Making - Medical Decision Making Patient reexamined at this time shows no signs of distress. He is resting comfortably. Patient did have some throat scratchiness after CT. Patient did have some sneezing of previous CAT scan a few days ago. He was premedicated. At this time is symptom free with any throat irritation difficulty breathing, or swollen. Patient's labs been reviewed no white count. Patient's vitals are stable. Patient has mild tenderness right lower quadrant. CT of the abdomen and pelvis was performed and shows better visualization of the appendix which is mildly elevated and suggestion of the mucosal hyperemia. No significant surrounding fat stranding noted. Acute appendicitis is not excluded as read by radiology. Case discussed with attending physician who did discuss the case with patient's surgeon Dr. Juárez : With the patient and recommend starting antibiotics. Patient will be made nothing by mouth as there is a chance of going to the OR today. - Lab Data Result diagrams: 08/03/18 13:45 08/03/18 13:45 Lab Results 08/03/18 08/03/18 08/03/18 Range/Units 13:45 13:45 13:45 WBC 7.4 (4.0-11.0) k/uL RBC 5.07 (4.30-5.90) m/uL Hgb 16.2 (13.0-17.5) gm/dL Hct 46.0 (39.0-53.0) % MCV 90.6 (80.0-100.0) fL MCH 31.8 (25.0-35.0) pg MCHC 35.2 (31.0-37.0) g/dL RDW 12.4 (11.5-15.5) % Plt Count 229 (150-450) k/uL Neutrophils % 65 % Lymphocytes % 26 % Monocytes % 5 % Eosinophils % 3 % Basophils % 1 % Neutrophils # 4.8 (1.3-7.7) k/uL Lymphocytes # 1.9 (1.0-4.8) k/uL Monocytes # 0.4 (0-1.0) k/uL Eosinophils # 0.2 (0-0.7) k/uL Basophils # 0.0 (0-0.2) k/uL Sodium 142 (137-145) mmol/L Potassium 4.0 (3.5-5.1) mmol/L Chloride 102 (98-107) mmol/L Carbon Dioxide 30 (22-30) mmol/L Anion Gap 10 mmol/L BUN 15 (9-20) mg/dL Creatinine 0.83 (0.66-1.25) mg/dL Est GFR (CKD-EPI)AfAm >90 (>60 ml/min/1.73 sqM) Est GFR (CKD-EPI)NonAf >90 (>60 ml/min/1.73 sqM) Glucose 77 (74-99) mg/dL Calcium 9.6 (8.4-10.2) mg/dL Total Bilirubin 0.7 (0.2-1.3) mg/dL AST 33 (17-59) U/L ALT 37 (21-72) U/L Alkaline Phosphatase 49 (38-126) U/L Total Protein 8.3 H (6.3-8.2) g/dL Albumin 4.7 (3.5-5.0) g/dL Urine Color Light Yellow Urine Appearance Clear (Clear) Urine pH 6.5 (5.0-8.0) Ur Specific [place] 1.013 (1.001-1.035) Urine Protein Negative (Negative) Urine Glucose (UA) Negative (Negative) Urine Ketones Negative (Negative) Urine Blood Negative (Negative) Urine Nitrite Negative (Negative) Urine Bilirubin Negative (Negative) Urine Urobilinogen <2.0 (<2.0) mg/dL Ur Leukocyte Esterase Negative (Negative) Disposition Clinical Impression: Abdominal pain Disposition: ADMITTED IP TO THIS HOSP Condition: Stable Is patient prescribed a controlled substance at d/c from ED?: No Referrals: None,Stated [Primary Care Provider] - 1-2 days Time of Disposition: 15:29
[2018-08-03 14:44] LABS: Appearance,Urine Clear (Clear); Bilirubin,Urine Negative (Negative); Blood,Urine Negative (Negative); Color,Urine Light Yellow; Glucose,Urine (UA) Negative (Negative); Ketones,Urine Negative (Negative); Leukocyte Esterase,Urine Negative (Negative); Nitrite,Urine Negative (Negative); PH, Urine 6.5 (5.0-8.0); Protein,Urine Negative (Negative); Specific Gravity,Urine 1.013 (1.001-1.035); Urobilinogen,Urine <2.0 mg/dL (<2.0)
--- NOTE | 2018-08-03 14:45 | CT ---
EXAMINATION TYPE: CT abdomen pelvis w con DATE OF EXAM: 08/03/2018 COMPARISON: CT abdomen pelvis from 3 days ago HISTORY: RLQ pain x3 days CT DLP: 518.4 mGycm, Automated Exposure Control for Dose Reduction was Utilized. CONTRAST: CT scan of the abdomen and pelvis is performed without oral but with IV Contrast, patient injected wi th 100 mL of Isovue 300. FINDINGS: LUNG BASES: No significant abnormality is appreciated. LIVER/GB: No significant abnormality is appreciated. PANCREAS: No significant abnormality is seen. SPLEEN: No significant abnormality is seen. ADRENALS: No significant abnormality is seen. KIDNEYS: Symmetric cortical medullary uptake and excretion from both kidneys is seen without hydronep hrosis is identified bilaterally. BOWEL: Appendix is better seen on current study ascending from the posterior aspect of cecum. It is m ildly dilated up to 9 mm axial image 53 for reference. It is thicker in the tip in mid segments versu s base. No significant surrounding inflammatory change is identified. Some mucosal hyperemia is felt present as there is no central air within the appendix lumen identified. PROSTATE/SEMINAL VESICLES: No gross abnormality seen. LYMPH NODES: No greater than 1cm abdominal or pelvic lymph nodes are appreciated. OSSEOUS STRUCTURES: Bilateral pars defects L5 level redemonstrated without significant spondylolisthe sis. OTHER: Tiny amount of free fluid pelvis near axial image 72 slightly larger versus prior. IMPRESSION: Better visualization of appendix which is mildly dilated and has suggestion of mucosal hy peremia. No significant surrounding fat stranding is noted. Acute appendicitis cannot be excluded bas ed on these findings.
[2018-08-03 14:51] LABS: ALT 37 U/L (21-72); AST 33 U/L (17-59); Albumin 4.7 g/dL (3.5-5.0); Alkaline Phosphatase 49 U/L (38-126); Anion Gap 10 mmol/L; Blood Urea Nitrogen 15 mg/dL (9-20); Calcium 9.6 mg/dL (8.4-10.2); Carbon Dioxide 30 mmol/L (22-30); Chloride 102 mmol/L (98-107); Glucose 77 mg/dL (74-99); Sodium 142 mmol/L (137-145); Total Bilirubin 0.7 mg/dL (0.2-1.3); Total Protein 8.3 g/dL (6.3-8.2)
[2018-08-03 15:14] LABS: Basophils % (A) 1 %; Eosinophils # (A) 0.2 k/uL (0-0.7); Eosinophils % (A) 3 %; HGB 16.2 gm/dL (13.0-17.5); Lymphocytes # (A) 1.9 k/uL (1.0-4.8); Lymphocytes % (A) 26 %; MCH 31.8 pg (25.0-35.0); MCHC 35.2 g/dL (31.0-37.0); MCV 90.6 fL (80.0-100.0); Mean Platelet Volume 7.8; Monocytes # (A) 0.4 k/uL (0-1.0); Monocytes % (A) 5 %; Neutrophils # (A) 4.8 k/uL (1.3-7.7); Neutrophils % (A) 65 %; Platelet Count 229 k/uL (150-450); RBC 5.07 m/uL (4.30-5.90); RDW 12.4 % (11.5-15.5); WBC 7.4 k/uL (4.0-11.0)
[2018-08-03] MEDS ORDERED: NALOXONE 0.4 MG/ML 1 ML VIAL IV PRN ×2 (15:29→19:14)
[2018-08-03] MEDS ORDERED: MORPHINE SULFATE 4 MG/ML SYRINGE IV PRN (15:29)
[2018-08-03] MEDS ORDERED: ONDANSETRON 4 MG/2 ML VIAL IVP PRN (15:29)
[2018-08-03] MEDS ORDERED: PIPERACILLIN-TAZOBACTAM 3.375 GM in DEXTROSE/WATER 1 50ML.BAG IVPB STA (15:29)
[2018-08-03] MEDS: SODIUM CHLORIDE 0.9% 1,000 ML IV ONE ×2 (15:37→20:37)
--- NOTE | 2018-08-03 17:01 | P.GSHP ---
History of Present Illness H&P Date: 08/03/18 Chief Complaint: Right lower quadrant abdominal pain 18-year-old male came to the ER on Friday with complaints of severe right lower quadrant pain. Patient had a CAT scan showing some slight distention and possible mucosal thickening of the appendix. White blood cell count was elevated. Patient's pain did improve and he was thought to likely be suffering from a viral illness and he was discharged home. He was given IV antibiotics on at least 2 separate occasions over the weekend however. Today he was still having pain. His family contacted my office wondering what they should do. He came back to the ER today. CAT scan was repeated. CAT scan still shows some hyperemia of the appendix. White blood cell count now is normal. Denies fevers. Has been tender in the right lower quadrant. 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 hx of pilonidal cyst History of Any Multi-Drug Resistant Organisms: None Reported Past Surgical History: No Surgical Hx Reported Additional Past Surgical History / Comment(s): pilinodal cyst removed Past Anesthesia/Blood Transfusion Reactions: No Reported Reaction Additional Past Anesthesia/Blood Transfusion Reaction / Comment(s): NO PRIOR SX HX Past Psychological History: No Psychological Hx Reported Smoking Status: Never smoker Past Alcohol Use History: None Reported Past Drug Use History: None Reported - Past Family History Mother Family Medical History: No Reported History Father Additional Family Medical History / Comment(s): hernia Medications and Allergies Home Medications Medication Instructions Recorded Confirmed Type No Known Home Medications 08/03/18 08/03/18 History Allergies Allergy/AdvReac Type Severity Reaction Status Date / Time Iodinated Contrast- Oral and AdvReac Cough/sneez Verified 08/03/18 14:22 IV Dye e Surgical - Exam Vital Signs Temp Pulse Resp BP Pulse Ox 98.3 F 74 20 109/78 99 08/03/18 12:53 08/03/18 12:53 08/03/18 12:53 08/03/18 12:53 08/03/18 12:53 Physical exam: General: Well-developed, well-nourished HEENT: Normocephalic, sclerae nonicteric Abdomen: Right lower quadrant tenderness, nondistended Extremities: No edema Neuro: Alert and oriented Results - Labs 08/03/18 13:45 08/03/18 13:45 Abnormal Lab Results - Last 24 Hours (Table) 08/03/18 Range/Units 13:45 Total Protein 8.3 H (6.3-8.2) g/dL Diabetes panel 08/03/18 Range/Units 13:45 Sodium 142 (137-145) mmol/L Potassium 4.0 (3.5-5.1) mmol/L Chloride 102 (98-107) mmol/L Carbon Dioxide 30 (22-30) mmol/L BUN 15 (9-20) mg/dL Creatinine 0.83 (0.66-1.25) mg/dL Glucose 77 (74-99) mg/dL Calcium 9.6 (8.4-10.2) mg/dL AST 33 (17-59) U/L ALT 37 (21-72) U/L Alkaline Phosphatase 49 (38-126) U/L Total Protein 8.3 H (6.3-8.2) g/dL Albumin 4.7 (3.5-5.0) g/dL Calcium panel 08/03/18 Range/Units 13:45 Calcium 9.6 (8.4-10.2) mg/dL Albumin 4.7 (3.5-5.0) g/dL Pituitary panel 08/03/18 Range/Units 13:45 Sodium 142 (137-145) mmol/L Potassium 4.0 (3.5-5.1) mmol/L Chloride 102 (98-107) mmol/L Carbon Dioxide 30 (22-30) mmol/L BUN 15 (9-20) mg/dL Creatinine 0.83 (0.66-1.25) mg/dL Glucose 77 (74-99) mg/dL Calcium 9.6 (8.4-10.2) mg/dL Adrenal panel 08/03/18 Range/Units 13:45 Sodium 142 (137-145) mmol/L Potassium 4.0 (3.5-5.1) mmol/L Chloride 102 (98-107) mmol/L Carbon Dioxide 30 (22-30) mmol/L BUN 15 (9-20) mg/dL Creatinine 0.83 (0.66-1.25) mg/dL Glucose 77 (74-99) mg/dL Calcium 9.6 (8.4-10.2) mg/dL Total Bilirubin 0.7 (0.2-1.3) mg/dL AST 33 (17-59) U/L ALT 37 (21-72) U/L Alkaline Phosphatase 49 (38-126) U/L Total Protein 8.3 H (6.3-8.2) g/dL Albumin 4.7 (3.5-5.0) g/dL Assessment and Plan (1) Acute appendicitis Narrative/Plan: Suspect mild partially treated acute appendicitis. Options discussed with the patient and his family. We have decided to proceed with laparoscopic appendectomy at this time. Risks of bleeding, infection, negative intraoperative findings, abscess, dehiscence, hernia were discussed. They understand and wish to proceed. Current Visit: Yes Status: Acute Code(s): K35.80 - UNSPECIFIED ACUTE APPENDICITIS SNOMED Code(s): 21187960
[2018-08-03] MEDS ORDERED: fentaNYL (PF) 50 MCG/ML 2 ML AMP ONE (18:28)
[2018-08-03] MEDS ORDERED: ONDANSETRON 4 MG/2 ML VIAL ONE (18:28)
[2018-08-03] MEDS ORDERED: MIDAZOLAM 2 MG/2 ML VIAL ONE (18:28)
[2018-08-03] MEDS ORDERED: GLYCOPYRROLATE 0.2 MG/ML 2 ML VIAL ONE (18:28)
[2018-08-03] MEDS ORDERED: HYDROmorphone (PF) 1 MG/ML ONE (18:28)
[2018-08-03] MEDS ORDERED: NEOSTIGMINE 1 MG/ML 10 ML VIAL ONE (18:28)
[2018-08-03] MEDS ORDERED: PROPOFOL 10 MG/ML 20 ML VIAL IV ONE (18:28)
[2018-08-03] MEDS ORDERED: IV FLUID CONTINUATION 900 ML IV ONE ×2 (18:28)
[2018-08-03] MEDS ORDERED: ROCURONIUM BROMIDE 10 MG/ML 10 ML VIAL IV ONE (18:28)
[2018-08-03] MEDS ORDERED: LIDOCAINE 1% INJ 10MG/ML (20 ML MDV) ONE (18:28)
[2018-08-03] MEDS ORDERED: BUPIVACAIN-EPI 0.25%-1:200,000 30 ML VIAL SQ ONE ×2 (18:56)
--- NOTE | 2018-08-03 19:16 | P.OP ---
Date of Procedure: 08/03/18 Procedure(s) Performed: PREOPERATIVE DIAGNOSIS: Acute appendicitis POSTOPERATIVE DIAGNOSIS: Same PROCEDURE: Laparoscopic appendectomy SURGEON: Marquita EBL: Total ANESTHESIA: General COMPLICATIONS: None OPERATIVE PROCEDURE: The patient was brought and placed on the operating table in the supine position. The patient was placed under general anesthesia. The abdomen was prepped and draped in the usual sterile fashion. A small curvilinear infraumbilical incision was made. The fascia was retracted anteriorly with [place] forceps. The Veress needle was advanced into the peritoneal cavity. The saline drop test was normal. Insufflation took place to 15 mmHg. A 5 mm trocar was then placed. An additional 5 mm suprapubic trocar was placed under direct visualization as well as a 12 mm left lower quadrant trocar under direct visualization. The appendix was inspected. It was mildly inflamed. The mesoappendix was dissected. The base of the appendix was divided using a linear 45 mm intestinal stapler. The mesentery itself was divided using a 12 mm clipper. The area was then irrigated. No further purulence or bleeding was seen. The appendix was brought out of the peritoneal cavity through the left lower quadrant trocar site within the trocar itself. The fascia at the 12 mm site was closed using a [id number] 0 Vicryl stitch. The skin at all 3 sites was closed using 4-0 Monocryl sutures. Steri- Strips and sterile dressings then applied. DISPOSITION: Stable to recovery room
[2018-08-03 20:10] VITALS: BMI 19.4
[2018-08-03] MEDS: HYDROmorphone 1 MG/ML 1 ML SYRINGE IVP PRN (21:28)
[2018-08-03] MEDS: HEPARIN SODIUM,PORCINE 5,000 UNIT/ML 1 ML VIAL SQ SCH (23:45)
[2018-08-03] MEDS: PIPERACILLIN-TAZOBACTAM 3.375 GM in DEXTROSE/WATER 1 50ML.BAG IVPB SCH (23:45)
[2018-08-04] MEDS: HYDROmorphone 1 MG/ML 1 ML SYRINGE IVP PRN (04:07)
[2018-08-04] MEDS: PIPERACILLIN-TAZOBACTAM 3.375 GM in DEXTROSE/WATER 1 50ML.BAG IVPB SCH (07:58)
[2018-08-04] MEDS: HEPARIN SODIUM,PORCINE 5,000 UNIT/ML 1 ML VIAL SQ SCH (07:58)
[2018-08-04] MEDS: HYDROcodone/APAP 5-325MG 1 EACH TAB PO PRN ×3 (08:00→15:52)
[2018-08-04] MEDS ORDERED: KETOROLAC 30 MG/ML 1 ML VIAL IVP STA (09:42)
[2018-08-04 13:05] VITALS: BP 114/75; PULSE 81; RESP 18; TEMP 98.3
--- NOTE | 2018-08-04 16:28 | P.DS ---
Providers Date of admission: 08/03/18 15:37 Expected date of discharge: 08/04/18 Attending physician: Bryant Juárez Primary care physician: Stated None - Discharge Diagnosis(es) (1) Acute appendicitis Patient was admitted yesterday with suspected acute appendicitis. He underwent laparoscopic appendectomy. Doing well today. Pain is improved. Incisions are healing nicely. He is tolerating a diet. We'll discharge today with outpatient follow-up in 1 week. Oral pain medicine prescription provided. Status: Acute Patient Condition at Discharge: Stable Plan - Discharge Summary New Discharge Prescriptions: New HYDROcodone/APAP 5-325MG [[place] 5-325] 1 each PO Q4HR PRN #12 tab PRN Reason: Mild Pain Discharge Medication List HYDROcodone/APAP 5-325MG [[place] 5-325] 1 each PO Q4HR PRN #12 tab 08/04/18 [Rx] Follow up Appointment(s)/Referral(s): Bryant Juárez MD [Medical Doctor] - 1 Week (July AT 3:30) None,Stated [Primary Care Provider] - 1-2 days Patient Instructions/Handouts: Laparoscopic Appendectomy (DC) Activity/Diet/Wound Care/Special Instructions: FOLLOW UP WRITTEN, SOONER IF PROBLEMS OR CONCERNS IE..FEVER, CHILLS, REDNESS OR FOUL DRAINAGE FROM INCISIONAL SITES, PAIN NOT RELIEVED BY PRESCRIPTION MEDS. SHOWER DAILY, NO TUB BATHS, SWIMMING POOLS, OR HOT TUBS. NO DRIVING WHILE TAKING NARCOTICS. NO HEAVY LIFTING, PULLING OR PUSHING OF OBJECTS. LIGHT DIET AND DRINK PLENTY OF LIQUIDS. Discharge/Stand Alone Forms: Work/Release Restrictions Form Discharge Disposition: HOME SELF-CARE
== END 2018-08-04 16:01 | disposition home or self-care (01) ==
LOC: EC 12:38 → 3SCARD 15:37 → 6PED 17:41
PROVIDERS: ADMIT Surgery; ATTEND Surgery
DX: K35.80 Unspecified acute appendicitis (principal); Z91.041 Radiographic dye allergy status; Z87.2 Personal history of diseases of the skin and subcutaneous tissue; Z84.89 Family history of other specified conditions
CPT/HCPCS: 44970; 96361; 96374; 96375; 99285; 36415; 88304; 80053; 85025; 81003; 87040; 74177; G0378 ×3; J2250; J1200; J1644 ×2; J2710; J2930; J2405; J2001; J3010; J1885; J1170 ×2; J2543 ×2; J2704; Q9967; 96365; 96366

== ENCOUNTER 2018-12-08 21:11 | Emergency (ER) | payer BC ==
[2018-12-08 21:16] VITALS: BP 143/85; PULSE 76; RESP 20; TEMP 98.3
[2018-12-08] MEDS ORDERED: diphenhydrAMINE 50 MG/ML 1 ML VIAL IVP STA (21:57)
[2018-12-08] MEDS ORDERED: METOCLOPRAMIDE 5 MG/ML 2 ML VIAL IVP STA (21:57)
[2018-12-08] MEDS ORDERED: ACETAMINOPHEN TAB 325 MG TAB PO STA (21:57)
--- NOTE | 2018-12-08 23:01 | CT ---
History: ITS.REASON CT Reason: Pain Exam: CT HEAD Without Contrast Technique more: CTDI is 45.2 mGy and DLP is 1043 mGy-cm. Technique more: This CT exam was performed using one or more of the following dose reduction techniques: automated exposure control, adjustment of the mA and/or kV according to patient size, and/or use of iterative reconstruction technique. Comparison: None available FINDINGS: No intracranial hemorrhage, mass effect or calvarial fracture. The ventricles are within limits and midline. The visualized paranasal sinuses, mastoids and orbits are within limits. IMPRESSION: No intracranial hemorrhage, mass effect or calvarial fracture. Exam: CT C SPINE Without Contrast Technique more: CTDI is 7.7 mGy and DLP is 235.5 mGy-cm. Technique more: This CT exam was performed using one or more of the following dose reduction techniques: automated exposure control, adjustment of the mA and/or kV according to patient size, and/or use of iterative reconstruction technique. Comparison: None available FINDINGS: No fracture or malalignment. Straightening may represent position or spasm. No evidence of prevertebral swelling. The disc spaces appear within limits. The visualized apices appear clear. IMPRESSION: No fracture or malalignment. Straightening may represent position or spasm. No evidence of prevertebral swelling.
--- NOTE | 2018-12-08 23:08 | ED ---
General Adult HPI - General Chief complaint: Headache Stated complaint: Headache, dizzy Time Seen by Provider: 12/08/18 21:28 Source: patient, RN notes reviewed, old records reviewed Mode of arrival: ambulatory Limitations: no limitations - History of Present Illness Initial comments: 18-year-old male patient with no pertinent past medical history presents to ED for approximately 1 month of waxing and waning headache and temporal lobe. Patient reports that he was wrestling with friend approximately one month ago, he fell to the ground and hit his occipital lobe on the ground. She reports he has had headache since. Patient denies any loss of consciousness. Patient denies any use of blood thinners. Patient reports that he has a dull pain in his temporal lobe which waxes and wanes throughout the day. Patient states that he does experience this headache most every day. Patient denies waking up headache, states that it has an insidious onset. Patient reports that he has had some blurred vision in the past, denies any blurred vision now. Patient states that his headache improves without improvement. Patient denies other complaints. Systemic: Pt denies fatigue, myalgia, fever/chills, rash. Pt denies weakness, night sweats, weight loss. Neuro: Pt denies syncope or pre-syncope. HEENT: Pt denies ocular discharge or irritation, otalgia, rhinorrhea, pharyngitis or notable lymphadenopathy. Cardiopulmonary: Pt denies chest pain, SOB, heart palpitations, dyspnea on exertion. Abdominal/GI: Pt denies abdominal pain, n/v/d. : Pt denies dysuria, burning w/ urination, frequency/urgency. Denies new onset urinary or bowel incontinence. MSK: Pt denies myalgia, loss of strength or function in extremities. Neuro: Pt denies new onset weakness, paresthesias. - Related Data Home Medications Medication Instructions Recorded Confirmed Ibuprofen [Motrin Ib] 200 mg PO Q4HR PRN 12/08/18 12/08/18 Omeprazole 40 mg PO DAILY 12/08/18 12/08/18 Previous Rx's Medication Instructions Recorded Ibuprofen [Motrin] 600 mg PO Q6HR PRN #40 day 12/08/18 Allergies Allergy/AdvReac Type Severity Reaction Status Date / Time Iodinated Contrast- Oral and AdvReac Cough/sneez Verified 12/08/18 21:49 IV Dye e Review of Systems ROS Statement: Those systems with pertinent positive or pertinent negative responses have been documented in the HPI. ROS Other: All systems not noted in ROS Statement are negative. 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 hx of pilonidal cyst History of Any Multi-Drug Resistant Organisms: None Reported Past Surgical History: Appendectomy Additional Past Surgical History / Comment(s): pilinodal cyst removed, appy today Past Anesthesia/Blood Transfusion Reactions: No Reported Reaction Additional Past Anesthesia/Blood Transfusion Reaction / Comment(s): NO PRIOR SX HX Past Psychological History: No Psychological Hx Reported Smoking Status: Never smoker Past Alcohol Use History: None Reported Past Drug Use History: None Reported - Past Family History Mother Family Medical History: No Reported History Father Family Medical History: No Reported History Additional Family Medical History / Comment(s): hernia General Exam - General Exam Comments Initial Comments: Constitutional: NAD, AOX3, Pt has pleasant affect. HEENT: NC/AT, trachea midline, neck supple, no lymphadenopathy. Posterior pharynx non erythematous, without exudates. External ears appear normal, without discharge. Mucous membranes moist. Eyes PERRLA, EOM intact. There is no scleral icterus. No pallor noted. Cardiopulmonary: RRR, no murmurs, rubs or gallops, no JVD noted. Lungs CTAB in anterior and posterior hamm. No peripheral edema. Abdominal exam: Abdomen soft and non-distended. Abdomen non-tender to palpation in all 4 quadrants. Bowel sounds active in LLQ. No hepatosplenomegaly. No ecchymosis Neuro: CN II-XII intact. No nuchal rigidity. No focal deficit or facial droop. MSK: No posterior calf tenderness bilaterally, homans sign negative bilaterally. Posterior tibialis and radial pulse +2 bilaterally. Sensation intact in upper and lower extremities. Full active ROM in upper and lower extremities, 5/5 stregnth. Limitations: no limitations Course Vital Signs 12/08/18 21:14 Temperature 98.3 F Pulse Rate 76 Respiratory 20 Rate Blood Pressure 143/85 O2 Sat by Pulse 99 Oximetry Medical Decision Making - Medical Decision Making 18-year-old male patient presents to ED with approximately 1 month of waxing and waning occipital lobe headaches. Patient did suffer a trauma to his occipital lobe approximate one month ago, wrestling with friend. He had additionally complained of some blurred vision, denies any current blurred vision. Pt VSS, afebrile. Physical exam displayed normal neuro exam, no nuchal rigidity. Shared decision making was conducted with patient. Patient will prefer to have CT of brain and cervical spine for reassurance. CT of brain and cervical spine not display acute pathology. Headache resolved with Benadryl, Reglan, Tylenol. Patient comfortable with discharge. Patient does not have primary care provider, will be referred to [facility]. Patient to return to ED if new signs or symptoms develop or condition worsens in any way. Patient to use ibuprofen for headache. Case discussed in depth with Dr. Lester. Disposition Clinical Impression: Headache Disposition: HOME SELF-CARE Condition: Stable Instructions (If sedation given, give patient instructions): Acute Headache (ED ) Additional Instructions: Patient to adhere to previously discussed treatment plan and will take medication(s) as directed. Patient to follow up with PCP in 1-2 days. Patient to return to ED if symptoms do not improve. Prescriptions: Ibuprofen [Motrin] 600 mg PO Q6HR PRN #40 day PRN Reason: Pain Is patient prescribed a controlled substance at d/c from ED?: No Referrals: None,Stated [Primary Care Provider] - 1-2 days [facility] [NON[facility]FF] - 1-2 days
== END 2018-12-08 23:41 | disposition home or self-care (01) ==
LOC: EC 21:11
DX: R51 Headache (principal); R42 Dizziness and giddiness; Z79.899 Other long term (current) drug therapy; Z91.041 Radiographic dye allergy status
CPT/HCPCS: 72125; 70450; 99284; 96374; 96375; J1200; J2765

== ENCOUNTER → 2020-05-03 | Outpatient (CLI) | payer MEDICAID ==
[2020-05-03 14:56] LABS: HGB 16.8 gm/dL (13.0-17.5); MCH 31.3 pg (25.0-35.0); MCHC 34.3 g/dL (31.0-37.0); MCV 91.3 fL (80.0-100.0); Mean Platelet Volume 7.8; Platelet Count 260 k/uL (150-450); RBC 5.37 m/uL (4.30-5.90); RDW 12.4 % (11.5-15.5); WBC 6.8 k/uL (3.8-10.6)
== END | disposition home or self-care (01) ==
LOC: LABWHC1 12:38
PROVIDERS: ATTEND Surgery
DX: K40.20 Bilateral inguinal hernia, without obstruction or gangrene, not specified as recurrent (principal)
CPT/HCPCS: 36415; 85027

== ENCOUNTER 2020-05-05 10:19 | Day surgery (SDC) | payer MEDICAID ==
[2020-05-04 09:34] VITALS: BMI 21.2
[~2020-05-05 10:19] MED LIST changes: -DEXAMETHASONE SOD PHOSPHATE 10 MG/ML 1 ML VIAL IV ONE; -HEPARIN SODIUM,PORCINE 5,000 UNIT/ML 1 ML VIAL SQ ONE; -HYDROmorphone 0.5 MG/0.5 ML SYRINGE IVP PRN; +KETOROLAC 30 MG/ML 1 ML VIAL IVP SCH; +METOCLOPRAMIDE 5 MG/ML 2 ML VIAL IVP PRN; -ONDANSETRON 4 MG/2 ML VIAL IVP ONE; +Pre Op ABX Message 1 EACH MISC MISCELLANE ONE; -SCOPOLAMINE 1.5MG/72HR PATCH TRANSDERM ONE; -fentaNYL (PF) 50 MCG/ML 2 ML AMP IV PRN
[2020-05-05] MEDS: LIDOCAINE 1% (10MG/ML) FOR IV START INTRADERMA PRN ×2 (11:00→11:18)
[2020-05-05] MEDS ORDERED: HEPARIN SODIUM,PORCINE 5,000 UNIT/ML 1 ML VIAL ONE (11:02)
[2020-05-05] MEDS ORDERED: ONDANSETRON 4 MG/2 ML VIAL ONE (11:02)
[2020-05-05] MEDS: ONDANSETRON 4 MG/2 ML VIAL IVP ONE ×2 (11:14→11:19)
[2020-05-05] MEDS: DEXAMETHASONE SOD PHOSPHATE 10 MG/ML 1 ML VIAL IV ONE ×2 (11:14→11:19)
[2020-05-05] MEDS: HEPARIN SODIUM,PORCINE 5,000 UNIT/ML 1 ML VIAL SQ ONE ×2 (11:14→11:18)
--- NOTE | 2020-05-05 11:45 | P.GSHP ---
History of Present Illness H&P Date: 05/05/20 Chief Complaint: Bilateral inguinal hernia Patient known to our service. Patient underwent previous laparoscopic appendectomy. At the time of appendectomy patient was found to have small bilateral indirect inguinal hernias. Patient does a lot of lifting at work. Lately he has had pain bilateral groin right greater than left. Feels a small bulge at times. 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 hx of pilonidal cyst History of Any Multi-Drug Resistant Organisms: None Reported Past Surgical History: Appendectomy Additional Past Surgical History / Comment(s): pilonidal cyst removed, Past Anesthesia/Blood Transfusion Reactions: No Reported Reaction Additional Past Anesthesia/Blood Transfusion Reaction / Comment(s): NO PRIOR SX HX Smoking Status: Never smoker - Past Family History Mother Family Medical History: No Reported History Father Family Medical History: No Reported History Additional Family Medical History / Comment(s): hernia Medications and Allergies Home Medications Medication Instructions Recorded Confirmed Type Omeprazole 40 mg PO DAILY 12/08/18 05/05/20 History Allergies Allergy/AdvReac Type Severity Reaction Status Date / Time Iodinated Contrast Media AdvReac Cough/sneez Verified 05/05/20 10:45 [Iodinated Contrast- Oral e and IV Dye] Surgical - Exam Vital Signs Temp Pulse Resp BP Pulse Ox 98.9 F 84 16 136/92 97 05/05/20 10:39 05/05/20 10:39 05/05/20 10:39 05/05/20 10:39 05/05/20 10:39 Physical exam: General: Well-developed, well-nourished HEENT: Normocephalic, sclerae nonicteric Abdomen: Nontender, nondistended, small inguinal hernia bilaterally Extremities: No edema Neuro: Alert and oriented Assessment and Plan (1) Bilateral inguinal hernia Narrative/Plan: Will proceed with the da Fer assisted laparoscopic repair bilateral inguinal hernia with mesh, possible open. Risks of bleeding, infection, recurrence, bladder and bowel injury, numbness, nerve injury, conversion to an open procedure were discussed with the patient. The patient understands and wishes to proceed. Current Visit: Yes Status: Acute Code(s): K40.20 - BI INGUINAL HERNIA, W/O OBST OR GANGRENE, NOT SPCF RECUR SNOMED Code(s): 82231194
[2020-05-05] MEDS ORDERED: BUPIVACAIN-EPI 0.25%-1:200,000 30 ML VIAL SQ ONE ×3 (12:06→12:27)
[2020-05-05] MEDS ORDERED: fentaNYL (PF) 50 MCG/ML 2 ML AMP ONE (12:07)
[2020-05-05] MEDS ORDERED: ROCURONIUM BROMIDE 10 MG/ML 5 ML VIAL IV ONE (12:07)
[2020-05-05] MEDS ORDERED: NEOSTIGMINE 1 MG/ML 10 ML VIAL ONE (12:07)
[2020-05-05] MEDS ORDERED: LIDOCAINE 1% INJ 10MG/ML (20 ML MDV) ONE (12:07)
[2020-05-05] MEDS ORDERED: MIDAZOLAM 2 MG/2 ML VIAL ONE (12:07)
[2020-05-05] MEDS ORDERED: GLYCOPYRROLATE 0.2 MG/ML 2 ML VIAL ONE (12:07)
[2020-05-05] MEDS ORDERED: SUCCINYLCHOLINE CHLORIDE 100 MG/5 ML SYR IV ONE (12:07)
[2020-05-05] MEDS ORDERED: PROPOFOL 10 MG/ML 20 ML VIAL IV ONE (12:07)
[2020-05-05] MEDS ORDERED: LACTATED RINGERS 1,000 ML IV ONE (12:30)
[2020-05-05] MEDS ORDERED: NALOXONE 0.4 MG/ML 1 ML VIAL IV PRN (13:45)
[2020-05-05] MEDS ORDERED: HYDROcodone/APAP 5-325MG 1 EACH TAB PO PRN (13:45)
--- NOTE | 2020-05-05 13:49 | P.OP ---
Date of Procedure: 05/05/20 Procedure(s) Performed: PREOPERATIVE DIAGNOSIS: Bilateral inguinal hernia POSTOPERATIVE DIAGNOSIS: Bilateral inguinal hernia PROCEDURE: Laparoscopic repair bilateral indirect inguinal hernia with the da Fer robot assistance with mesh SURGEON: Marquita EBL: Minimal ANESTHESIA: General COMPLICATIONS: None OPERATIVE PROCEDURE: Patient was placed in the operating table in the supine position. The patient was placed under general anesthesia. The abdomen was prepped and draped in usual sterile fashion. A small curvilinear supraumbilical incision was made. The fascia was retracted anteriorly with Kurtis forceps. The Veress needle was inserted. The saline drop test was normal. Insufflation took place to 15 mmHg. an 8 mm trocar was then inserted. 2 additional 8 mm trochars were placed in the right upper quadrant and left upper quadrant under visualization. The robotic arms were then brought in and docked into place. The fenestrated bipolar was used in the left arm and the laparoscopic loni was utilized in the right arm. A 30 8 mm scope was used in the up position. The peritoneal cavity was inspected. The patient had evidence of a small moderate sized indirect hernia on the right and a small indirect hernia on the left. There was the beginning of a direct hernia on the left as well. The right side was first addressed. The right sided peritoneum was incised in a horizontal fashion cephalad to the internal inguinal ring. Following that careful dissection of the preperitoneal space took place. This took place using both electrocautery, sharp dissection but primarily blunt dissection. Visualization of the pubic tubercle and Fransisco's ligament took place medially. Full diss ection took place laterally as well. The patient's hernia was again noted to be indirect on the side. The hernia sac was fully dissected. Once we had adequate space the 15 x 10 progrip mesh was advanced into the preperitoneal space and flattened out appropriately to cover all potential hernia sites. No sutures were used. The left side was then addressed. In a similar fashion the peritoneum was incised. Dissection again took place thoroughly using primarily blunt dissection. The indirect and direct hernia on this side was fully reduced. The space was fully dissected to allow for placement of the mesh. The 15 x 10 mm Prograf mesh was again utilized and flattened out appropriately. The mesh overlapped nicely in the midline anterior to the bladder. The defect bilaterally was closed using a running 20V lock suture. A small peritoneal defect on the left-hand side was closed using a running locking 3-0 Vicryl suture. The sutures were then removed. The pneumoperitoneum was then evacuated. The skin of all 3 sites was closed using a 4-0 Monocryl stitch. Skin glue and sterile dressings were applied. DISPOSITION: Stable to recovery room
[2020-05-05] MEDS: HYDROmorphone 0.5 MG/0.5 ML SYRINGE IVP PRN ×4 (13:52→14:34)
[2020-05-05] MEDS ORDERED: ONDANSETRON 4 MG/2 ML VIAL IVP ONE (14:00)
[2020-05-05] MEDS ORDERED: KETOROLAC 30 MG/ML 1 ML VIAL IVP ONE (14:00)
[2020-05-05 14:04] VITALS: TEMP 98.8
[2020-05-05 14:06] VITALS: RESP 16
[2020-05-05] MEDS ORDERED: oxyCODONE-APAP 5-325MG 1 EACH TAB PO ONE (15:22)
[2020-05-05 16:22] VITALS: BP 121/73; PULSE 109
== END 2020-05-05 17:04 | disposition home or self-care (01) ==
LOC: OR 10:19
PROVIDERS: ATTEND Surgery
DX: K40.20 Bilateral inguinal hernia, without obstruction or gangrene, not specified as recurrent (principal); K21.9 Gastro-esophageal reflux disease without esophagitis; Z84.89 Family history of other specified conditions; Z98.890 Other specified postprocedural states; Z79.899 Other long term (current) drug therapy; Z91.041 Radiographic dye allergy status
CPT/HCPCS: 49650; S2900

== ENCOUNTER → 2020-08-25 | Outpatient (CLI) | payer MEDICAID | END | disposition home or self-care (01) | LOC: LABWHC1 10:39 | PROVIDERS: ATTEND Pediatrics Pediatric Infectious Diseases | DX: Z03.818 Encounter for observation for suspected exposure to other biological agents ruled out (principal) | CPT/HCPCS: 87635; C9803 ==

== ENCOUNTER → 2020-08-28 | Outpatient (CLI) | payer MEDICAID | END | disposition home or self-care (01) | LOC: LABWHC1 09:54 | PROVIDERS: ATTEND Pediatrics Pediatric Infectious Diseases | DX: Z20.828 Contact with and (suspected) exposure to other viral communicable diseases (principal) | CPT/HCPCS: 87635; C9803 ==

== ENCOUNTER 2022-04-01 04:05 | Emergency (ER) | payer MEDICAID, OTHER ==
[2022-04-01 04:15] VITALS: BP 131/86; PULSE 88; RESP 16; TEMP 98.2
--- NOTE | 2022-04-01 04:45 | XR ---
EXAMINATION TYPE: XR hand complete RT DATE OF EXAM: 04/01/2022 COMPARISON: NONE HISTORY: Trauma. Pain TECHNIQUE: 3 views FINDINGS: There is nondisplaced oblique fracture of the proximal shaft of the fifth metacarpal. The j oint spaces are normal. Fingers are intact. Carpal bones are intact. IMPRESSION: Acute nondisplaced fracture of the fifth metacarpal proximal shaft
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
== END 2022-04-01 06:26 | disposition home or self-care (01) ==
LOC: EC 04:05
DX: S62.306A Unspecified fracture of fifth metacarpal bone, right hand, initial encounter for closed fracture (principal); F17.209 Nicotine dependence, unspecified, with unspecified nicotine-induced disorders; Z91.041 Radiographic dye allergy status; X58.XXXA Exposure to other specified factors, initial encounter
CPT/HCPCS: 29125; 99283